=== PATIENT | male | born 1960 | race Caucasian/White ===

== ENCOUNTER 2023-12-03 10:49 | Outpatient (AMB) | payer OTHER, SELFPAY ==
--- NOTE | 2023-12-03 10:52 | MHC.PC.OV ---
Vital Signs 12/03/23 10:55 12/03/23 11:33 Height 5 ft 11 in Weight 208 lb 4 oz BMI 29.0 BP 142/78 H 118/64 Blood Pressure Location Lt brachial Rt brachial Position Sitting Sitting Respiration 15 Pulse 93 Pulse Source Pulse Oximeter Pulse Oximetry (%) 97 Oxygen Delivery Method Room Air Intake Visit Reasons: LIBRARY AIDE-EST CARE Intake Note: new patient to establish care Allergies No Known Allergies Allergy (Verified 12/03/23 11:14) Medication List - Last Reconciled 12/03/23 by JUDE Felipe No Known Home Meds Tobacco use date assessed: 12/03/23 Dental Screening Dental Screen Date: 12/03/23 Did you have a dental visit in the last 12 months?: Yes Did you have a dental problem in the last 6 months where you did not have access to dental care?: No Was dental information given to patient?: Patient has dentist HPI HPI Comments History of Present Illness Details 65 y/o M with YUHAAVIATAM, former smoker 60 pack year history/quit 15 years ago, cataracts, nocturia, skin cancer - basal cell ca, asymptomatic PVD Surgery: none Family hx: Mom w/ Alzheimers, Dad with AAA Health Maintenance: ? Colon has never had one done ? Tdap 11/2023 admin today Lung ca screening - AAA 2017 negative Specialists: GI Optho Derm Here today as a new patient to establish care and for complete physical exam. I do not have any old records. He recently relocated here from [place]. He has a cataract and needs an ophthalmology referral He wears hearing aids bilat, this is managed by [employer] Former smoker 60 pack year history quit 15 years ago would like to enroll in the lung cancer screening program Has never had a colonoscopy History of basal cell carcinoma Tdap required Plan Check screening labs Refer to derm, optho, GI for colon and lung ca screening Tdap today RTO 1 year for CPE,sooner PRN Labs from today show normal electrolytes, normal renal function, hemoglobin A1c 5.6%, normal LFTs, total cholesterol 175, LDL 115, HDL 45, triglycerides 79, normal vitamin-D, normal TSH, normal urine microalbumin creatinine ratio, B12 folate and PSA pending [facility] Medical History (Updated 12/03/23 @ 15:33 by JUDE Felipe) No pertinent past medical history No pertinent family history Surgical History (Updated 12/03/23 @ 11:01 by Dayami Frazier MA) No pertinent past surgical history Social History (Updated 12/03/23 @ 10:59 by Dayami Frazier MA) Household Members: Spouse Housing: House Are you a primary care management associate to a significant other at home: No Do you presently have visiting nurse or other home services: No Alcohol intake: current Alcohol intake frequency: does not drink Patient Tobacco Use Status: Former Tobacco user Tobacco use type: Cigarette Years Smoked: 30 e-Cigarette/Vaping Use: Never Used Second Hand Smoke Exposure: No service: No Current occupational status: retired Cognitive needs: Yes Hearing needs: Yes Vision needs: Yes (cataract) Questionnaire PHQ-9 Over the last 2 weeks, how often have you been bothered by any of the following problems? 1. Little interest or pleasure in doing things: not at all 2. Feeling down, depressed, or hopeless: not at all 3. Trouble falling or staying asleep, or sleeping too much: more than half the days 4. Feeling tired or having little energy: several days 5. Poor appetite or overeating: not at all 6. Feeling bad about yourself - or that you are a failure or have let yourself or your family down: not at all 7. Trouble concentrating on things, such as reading the newspaper or watching television: nearly every day 8. Moving or speaking so slowly that other people could have noticed. Or the opposite - being so fidgety or restless that you have been moving around a lot more than usual: not at all 9. Thoughts that you would be better off or of hurting yourself in some way: not at all Total score: 6 Depression Screening Interpretation: Negative Depression Screening Done: Yes 84670 - PHQ-9 Billing: Yes Source: Developed by Drs. Stuart Marlow, Fanta Beverly, Wero Wu and colleagues, with an educational bisi from [employer]. Thrive Questionnaire Date Thrive assessed: 12/03/23 I am a: Patient What is your living situation today?: I have a steady place to live Within the past 12 months, did the food you bought not last and you didn't have the money to get more?: Never true Within the past 12 months, did you worry whether your food would run out before you got money to buy more?: Never true Do you have trouble paying for medicines?: No Do you have trouble getting transportation to medical appointments?: No Do you have trouble paying your heating and electricity bill?: No Do you have trouble taking care of your child, family member or friend?: No Do you have trouble with day-to-day activities such as bathing, preparing meals, shopping, managing finances, etc.?: No Are you currently unemployed and looking for a job?: No Are you interested in more education?: No Please select the resources that you would like help with: None Currently or been in a relationship where the following occur: No concerns reported THRIVE Score: 0 AUDIT C Alcohol Use Questionnaire (AUDIT-C) 1. How often do you have a drink containing alcohol?: Monthly or less 2. How many drinks containing alcohol do you have on a typical day when you are drinking?: 1 or 2 3. How often do you have six or more drinks on one occasion?: Never Total Score: 1 Score Reviewed/Action Taken: Yes NANCI-7 AMB Questionnaire NANCI-7 Date NANCI - 7 assessed: 12/03/23 Feeling nervous, anxious, or on edge: 0 = Not at all Not being able to stop or control worryin = Not at all Worrying too much about different things: 0 = Not at all Trouble relaxin = Not at all Being so restless that it is hard to sit still: 0 = Not at all Becoming easily annoyed or irritable: 0 = Not at all Feeling afraid as if something awful might happen: 0 = Not at all Total NANCI-7 score (0-4 normal; 5-9 mild; 10-14 moderate; 15-21 severe): 0 Source: Developed by Drs. Stuart Marlow, Fanta Beverly, Wero Wu and colleagues, with an educational bisi from [employer]. NANCI-7 Assessment Billing NANCI-7 Assessment Tool: NANCI-7 Assessment 28534 Review of Systems Const Details: Constitutional: Denies fever. Skin: Denies rash. Eye: Denies eye pain. ENMT: Denies sore throat and nasal congestion. Respiratory: Denies shortness of breath and cough. Gastrointestinal: Denies nausea, vomiting or abdominal pain. Cardiovascular: Denies chest pain and syncope. Genitourinary: Denies dysuria. Musculoskeletal: Denies back pain and extremity pain. Neurologic: Denies headaches, confusion, and weakness. Psychiatric: Denies suicidal thoughts and substance abuse. Allergy/ Immunologic: Denies impaired immunity. Physical exam (Primary Care) Vital Signs: Last Vital Signs Pulse 93 12/03/23 10:55 Resp 15 12/03/23 10:55 BP 118/64 12/03/23 11:33 Pulse Ox 97 12/03/23 10:55 Oxygen Delivery Method Room Air 12/03/23 10:55 BMI result Body Mass Index 29.0 Tobacco/Smoking Status: Tobacco use Status Tobacco use date assessed 12/03/23 12/03/23 11:00 Patient Tobacco Use Status Former Tobacco user 12/03/23 11:00 Tobacco use type Cigarette 12/03/23 11:00 e-Cigarette/Vaping Use Never Used 12/03/23 11:00 PHQ-9: PHQ-9 Score PHQ-9: Total score 6 12/03/23 11:29 Depression Screening Interpretation: Negative Thrive Assessment: Date of Thrive Assessment Date Thrive assessed 12/03/23 12/03/23 10:54 Currently or been in a relationship where the following occur: No concerns reported Const Other: General: Well developed, well nourished, in no acute distress. Appears stated age. Head: Normocephalic, atraumatic. Eyes: Pupils are equal, round and reactive to light and accommodation. Conjunctivae are clear. Vision grossly normal. Ears: TMs clear AU, EACS WNL Nose: Patent, without discharge. Mouth: There are no ulcers or lesions noted. No inflammation, no post nasal drip, no plaques nor exudates. Neck: Supple, no adenopathy or thyromegaly. Lungs: Clear to auscultation bilaterally. No rales, rhonchi or wheeze noted. Good air flow in all krause. Heart: Regular rate and rhythm. No murmurs, click, rubs or gallops are noted. Abdomen: Bowel sounds present in all quadrants. The abdomen is soft, nontender, with no masses or organomegaly noted. No hernias are noted. Musculoskeletal: Joints are nontender, without swelling, redness, or effusions. Range of motion is observed to be normal. Pulses: Peripheral pulses are equal and palpable bilaterall mildly decreased, varicose veins bilat. Extremities: No clubbing, cyanosis nor edema is noted. Neurologic: Gait and station normal. Cranial Nerves 2-12 intact. Motor strength grossly symmetrical and intact. No sensory loss. Balance normal. Skin: No rashes, ulcers, or lesions noted. Turgor is good. Skin color is good. Hair and nails are without abnormalities. Psych: Normal eye contact, affect and mood appropriate, and normal interactions. Patient is alert and appropriate to context. Immunizations Boostrix Tdap 2.5 Lf unit-8 mcg-5 Lf/0.5 mL intramuscular syringe Performing Provider: JUDE Felipe Performing Location: [facility] Administered by: Elizabeth Spencer RN on 12/03/23 11:07 Dose Route Admin Location Dispensed Lot Number Expiration Date [employer] 0.5 mL IM Right Deltoid 0.5 mL [id number] 11/05/24 [id number] [employer] VIS Given Date VIS Provided VIS Publication Date 12/03/23 Single Vaccine 20 Eligibility Eligibility Date Funding Source Not [facility] Eligible 12/03/23 Private Coding Level of Care Code New Pt Prev Care 40-64y(55267) Diagnoses Encounter for general adult medical examination without abnormal findings Z00.00 Screen for colon cancer Z12.11 Laboratory exam ordered as part of routine general medical examination Z00.00 Former cigarette smoker Z87.891 Age-related nuclear cataract of left eye H25.12 Cataract type: age-related Age-related cataract type: nuclear Laterality: left History of skin cancer Z85.828 Asymptomatic PVD (peripheral vascular disease) I73.9 Nocturia R35.1 YUHAAVIATAM (hard of hearing) H91.90 Family history of Alzheimer disease Z82.0 Borderline high cholesterol E78.9 Additional Codes NANCI-7 Assessment Billing - NANCI-7 Assessment Tool: NANCI-7 Assessment 38482 ([id number]) Assessment & Plan Assessment & Plan (1) Encounter for general adult medical examination without abnormal findings: Code(s): Z00.00 - Encounter for general adult medical examination without abnormal findings Plan: . (2) Screen for colon cancer: Code(s): Z12.11 - Encounter for screening for malignant neoplasm of colon Category: Medical Plan: . (3) Laboratory exam ordered as part of routine general medical examination: Code(s): Z00.00 - Encounter for general adult medical examination without abnormal findings Category: Medical (4) Former cigarette smoker: Comment: 60 pack year hx/quit 15 years ago Code(s): Z87.891 - Personal history of nicotine dependence Category: Social Hx Plan: . (5) Cataract: Code(s): H26.9 - Unspecified cataract Category: Medical Qualifiers: Cataract type: age-related Age-related cataract type: nuclear Laterality: left Qualified Code(s): H25.12 - Age-related nuclear cataract, left eye Plan: . (6) History of skin cancer: Code(s): Z85.828 - Personal history of other malignant neoplasm of skin Category: Medical Plan: . (7) Asymptomatic PVD (peripheral vascular disease): Comment: based on clinical exam, monitor skin integrity Code(s): I73.9 - Peripheral vascular disease, unspecified Category: Medical Plan: . (8) Nocturia: Code(s): R35.1 - Nocturia Category: Medical Plan: . (9) YUHAAVIATAM (hard of hearing): Code(s): H91.90 - Unspecified hearing loss, unspecified ear Category: Medical Plan: . (10) Family history of Alzheimer disease: Code(s): Z82.0 - Family history of epilepsy and other diseases of the nervous system Category: Medical Plan: . (11) Borderline high cholesterol: Code(s): E78.9 - Disorder of lipoprotein metabolism, unspecified Category: Medical Plan: To reduce low-density lipoprotein (LDL) cholesterol, you can try making lifestyle changes to your diet, exercise, and other habits: Eat a heart-healthy diet Limit saturated and trans fats, and eat more foods with healthy fats, like nuts, seeds, and unsaturated oils. You can also try eating more soluble fiber, which can help reduce the amount of cholesterol your body absorbs. Foods high in soluble fiber include whole grains, fruits, and legumes. Exercise regularly Aim for at least 150 minutes of exercise per week, such as walking, swimming, or cycling. Maintain a healthy weight Losing weight can help lower LDL cholesterol, especially if you are overweight or obese. Manage stress Chronic stress can raise LDL cholesterol, so try to find healthy ways to manage it. Quit smoking Smoking can raise cholesterol and increase the risk of serious health problems. Get enough sleep Aim for 7 to 9 hours of sleep per night. You should also limit foods with cholesterol, which are found in animal products like liver, egg yolks, and whole milk dairy products. Plan . Orders: Orders TDaP Immunization Today Z23 - Encounter for immunization Hemoglobin A1c Today Z00.00 - Encounter for general adult medical examination without abnormal findings Vitamin B12 and Folate Today Z00.00 - Encounter for general adult medical examination without abnormal findings Vitamin D 25-OH Total Today Z00.00 - Encounter for general adult medical examination without abnormal findings Comprehensive Met. Panel Today Z00.00 - Encounter for general adult medical examination without abnormal findings Lipid Panel Today Z00.00 - Encounter for general adult medical examination without abnormal findings Microalbumin, Random (w Creat) Today Z00.00 - Encounter for general adult medical examination without abnormal findings PSA, Ultra Sensitive Today Z00.00 - Encounter for general adult medical examination without abnormal findings TSH reflex Free T4 Today Z00.00 - Encounter for general adult medical examination without abnormal findings Referrals Lung Cancer Screening Referral Z87.891 - Personal history of nicotine dependence Ophthalmology Referral H26.9 - Unspecified cataract Gastroenterology Referral Z12.11 - Encounter for screening for malignant neoplasm of colon Dermatology Referral Z85.828 - Personal history of other malignant neoplasm of skin Patient Instructions: Walk-In Care (Urgent Care): We Make it Easy Walk-in for urgent medical issues such as: ? Seasonal Allergies ? Insect Bites ? Cough ? Diarrhea ? Acute Asthma Attacks ? Back, Knee or Joint Pain ? Ear Infection ? Fever without a Rash ? Headaches ? Nausea ? [place] Eye, Rash or Skin Irritation ? Sore Throat ? Sports Physicals ? Vomiting Most insurances are accepted. Patients do not need to be part of the [facility] to seek care at the walk-in clinic. Locations [facility] [address], [place] [address] ? [phone] [facility] in [place] provides services to ages 18 and over. Open Wednesday-Wednesday: 8 a.m. to 5 p.m. and Wednesday: 9 a.m. to 3 p.m.* *Hours may vary due to staffing availability. To confirm Walk-In Care hours in [place], please call [phone]. [address] [facility], [place] [address] ? [phone] [facility] in [place] provides services to ages 12 and over. Open Wednesday-Wednesday: 8 a.m. to 5 p.m. Hours may vary due to staffing availability. To confirm Walk-In Care hours in [place], please call [phone]. LABORATORY SERVICES: [facility] Lab ? Primary Location [address] [place] [address] Wednesday through Wednesday 6:00 AM ? 5:00 PM Wednesday 7:00 AM ? 11:00 AM* [phone] The [facility] Lab is centrally located near the front entrance of the [facility] for easy outpatient access. Convenient parking is provided for outpatients. *Hours may vary due to staffing availability. To confirm Laboratory hours for any location, please call [phone]. Offsite Location For your convenience, we offer offsite laboratory draw stations at the following locations: [address] [place] [address] ? [address], [address] Wednesday through Wednesday 7:30 AM ? 1:00 PM* [phone] *Hours may vary due to staffing availability. To confirm Laboratory hours for any location, please call [phone]. [place] ? [address] Wednesday through Wednesday 6:00 AM ? 3:30 PM* Wednesday 6:30 AM ? 3 PM* [phone] *Hours may vary due to staffing availability. To confirm Laboratory hours for any location, please call [phone] [place] [address] Wednesday through Wednesday 7:30 AM ? 4:00 PM* [phone] *Hours may vary due to staffing availability. To confirm Laboratory hours for any location, please call [phone] [place] [address] Wednesday through 9:00 AM ? 4:00 PM* *Hours may vary due to staffing availability. To confirm Laboratory hours for any location, please call [phone]. Appointments are not necessary. Walk-ins are welcome. Like all the departments throughout the [facility], our Lab undergoes frequent reviews to ensure the quality and accuracy of test results, and our staff takes special pride in its status as a nationally accredited facility. Patient Portal: ONE PATIENT. ONE RECORD. BETTER CARE. [facility] has a fully integrated, cutting-edge mobile electronic health information system that has revolutionized the way we care for our patients and manage our organization. This system improves communication and coordination enabling us to provide safe, higher-quality care, and an overall positive experience for staff and patients. Our first priority, as always, is to deliver the highest quality care possible. The system is running in the background supporting that priority. This portal is for all [facility] services and practices. If you are experiencing any technical difficulties with enrolling or logging into the Patient Portal please complete the [facility] Patient Portal Technical Support Form. [facility] now offers a new secure on-line interactive tool for patients to review their health information ? Patient Portal. This interactive web portal will enable patients and their families to take an active role in their care by providing easy, secure access to their health information via the internet. The Patient Portal provides patients with instant access to their health information, including laboratory results, medications, allergies, demographic information, visit history, and more. In addition to managing their own care, parents and health care proxies with authorized consent will appreciate the ability to access the records of those individuals for whom they provide care. Please note: if you wish to gain access (Proxy) to another patient?s portal, you will be required to come to the Medical Records Department in person at [facility]. Both the patient giving proxy access and the proxy will need to provide photo identification and complete the appropriate authorization. The Patient Portal also allows track their appointments online. The [facility] Patient Portal also saves patients time by allowing them to submit updates to their demographic and contact information prior to their visits. Portal email notifications will also alert patients to any new activity on their portal, such as test results and new appointments. In order to initially enroll in the [facility] Patient Portal, you will need to enter some required information including the following: ? your [facility] Medical Record number ? your personal home email address ? name ? date of Please note: In order to enroll in the [facility] Patient Portal, we need to have your email address on file in your electronic medical record. The email address needs to be specific for one person (yourself) in order for your Portal enrollment to be successful. You can update your email address in person with our Registration staff when you are registering for a hospital visit. Otherwise, you will need to come to the Health Information Management (Medical Records) Department at [facility]. We are open from Wednesday ? Wednesday from 7:30 a.m. ? 4:30 p.m. You will be required to present a photo id. Once you have successfully enrolled in the Patient Portal, you will receive a one-time user id and password for the Portal, sent to your email address. This will allow you to log into the Patient Portal within 99 hrs and reset your own logon id and password, and define personal security questions. Once your permanent login and password have been set, you can log into the [facility] Patient Portal at any time via the blue button above or from the Portal Logon button on any page of the [facility] website. [facility] and [facility] encourage all of our patients to enroll in Patient Portal as it presents a valuable opportunity for patients and their families to actively participate in their care and stay healthy Welcome to [facility]. We look forward to working with you. Health screenings for men ages 40 to 64 You should visit your health care provider regularly, even if you feel healthy. The purpose of these visits is to: Screen for medical issues Assess your risk for future medical problems Encourage a healthy lifestyle Update vaccinations and other preventive care services Help you get to know your provider in case of an illness Information Even if you feel fine, you should still see your provider for regular checkups. These visits can help you avoid problems in the future. For example, the only way to find out if you have high blood pressure is to have it checked regularly. High blood sugar and high cholesterol level also may not have any symptoms in the early stages. Simple blood tests can check for these conditions. There are specific times when you should see your provider or receive specific health screenings. The [place] Preventive Services Task Force publishes a list of recommended screenings. Below are screening guidelines for men ages 40 to 64. BLOOD PRESSURE SCREENING Have your blood pressure checked at least once every year. Watch for blood pressure screenings in your area. Ask your provider if you can stop in to have your blood pressure checked. Ask your provider if you need your blood pressure checked more often if: You have diabetes, heart disease, kidney problems, or are overweight or have certain other health conditions You have a first-degree relative with high blood pressure You are Black Your blood pressure top number is from 120 to 129 mm Hg, or the bottom number is from 70 to 79 mm Hg If the top number is 130 mm Hg or greater or the bottom number is 80 mm Hg or greater, this is considered stage 1 hypertension. Schedule an appointment with your provider to learn how you can lower your blood pressure. Effects of age on blood pressure CHOLESTEROL SCREENING Cholesterol screening should begin at age 35 for men with no known risk factors for coronary heart disease. Repeat cholesterol screening should take place: Every 5 years for men with normal cholesterol levels More often if changes occur in lifestyle (including weight gain and diet) More often if you have diabetes, heart disease, kidney problems, or certain other conditions COLORECTAL CANCER SCREENING If you are under age 45, talk to your provider about getting screened. You may need to be screened if you have a strong family history of colon cancer or polyps. Screening may also be considered if you have risk factors such as a history of inflammatory bowel disease or polyps. If you are age 45 to 75, you should be screened for colorectal cancer. There are several screening tests available: A stool-based fecal occult blood (gFOBT) or fecal immunochemical test (FIT) every year A stool sDNA test every 1 to 3 years Flexible sigmoidoscopy every 5 years or every 10 years with stool testing FIT done every year CT colonography (virtual colonoscopy) every 5 years Colonoscopy every 10 years You may need a colonoscopy more often if you have risk factors for colorectal cancer, such as: Ulcerative colitis A personal or family history of colorectal cancer A history of growths in your colon called adenomatous polyps DENTAL EXAM Go to the dentist once or twice every year for an exam and cleaning. Your dentist will evaluate if you have a need for more frequent visits. DIABETES SCREENING All adults who do not have risk factors for diabetes should be screened starting at age 35 and repeated every 3 years. If you have other risk factors for diabetes, such as a first degree relative with diabetes, overweight or obesity, high blood pressure, prediabetes, or a history of heart disease, you may be tested more often. If you are overweight and have other risk factors, such as high blood pressure and are planning to become , screening is recommended. EYE EXAM Have an eye exam every 2 to 4 years ages 40 to 54 and every 1 to 3 years ages 55 to 64. Your provider may recommend more frequent eye exams if you have vision problems or glaucoma risk. Have an eye exam that includes an examination of your retina (back of your eye) at least every year if you have diabetes. IMMUNIZATIONS Commonly needed vaccines include: Flu shot: get one every year COVID-19 vaccine: ask your provider what is best for you Tetanus-diphtheria and acellular pertussis (Tdap) vaccine: have as one of your tetanus-diphtheria vaccines if you did not receive it as an adolescent Tetanus-diphtheria: have a booster (or Tdap) every 10 years Varicella vaccine: receive 2 doses if you never had chickenpox or the varicella vaccine and were born in 1979 or after Hepatitis B vaccine: receive 2, 3, or 4 doses, depending on your exact circumstances, if you did not receive these as a child or adolescent, until age 59 Shingles (herpes zoster) vaccine: at or after age 50 Ask your provider if you should receive other immunizations, especially if you have certain medical conditions, such as diabetes or are at increased risk for some diseases such as pneumonia. INFECTIOUS DISEASE SCREENING Screening for hepatitis C: all adults ages 18 to 79 should get a one-time test for hepatitis C. Screening for human immunodeficiency virus (HIV): all people ages 15 to 65 should get a one-time test for HIV. Depending on your lifestyle and medical history, you may need to be screened for infections such as syphilis, chlamydia, and other infections. LUNG CANCER SCREENING You should have an annual screening for lung cancer with low-dose computed tomography (LDCT) if: You are age 50 to 80 years AND You have a 20 pack-year smoking history AND You currently smoke or have quit within the past 15 years OSTEOPOROSIS SCREENING If you are age 50 to 64 and have risk factors for osteoporosis, you should discuss screening with your provider. Risk factors can include long-term steroid use, low body weight, smoking, heavy alcohol use, having a fracture after age 50, or a family history of hip fracture or osteoporosis. Osteoporosis PHYSICAL EXAM All adults should visit their provider from time to time, even if they are healthy. The purpose of these visits is to: Screen for diseases Assess risk of future medical problems Encourage a healthy lifestyle Update vaccinations and other preventive care services Maintain a relationship with a provider in case of an illness Your height, weight, and body mass index (BMI) should be checked at every exam. During your exam, your provider may ask you about: Depression and anxiety Diet and exercise Alcohol and tobacco use Safety, such as use of seat belts and smoke detectors Your medicines and risk for interactions PROSTATE CANCER SCREENING If you're 55 through 69 years old, before having the test, talk to your provider about the pros and cons of having a PSA test. Ask about: Whether screening decreases your chance of dying from prostate cancer. Whether there is any harm from prostate cancer screening, such as side effects from testing or overtreatment of cancer when discovered. Whether you have a higher risk of prostate cancer than others. If you are age 55 or younger, screening is not generally recommended. You should talk with your provider about if you have a higher risk for prostate cancer. Risk factors include: Having a family history of prostate cancer (especially a brother or father) Being If you choose to be tested, the PSA blood test is repeated over time (yearly or less often), though the best frequency is not known. Prostate examinations are no longer routinely done on men with no symptoms. Prostate cancer SKIN EXAM Your provider may check your skin for signs of skin cancer, especially if you're at high risk. People at high risk include those who have had skin cancer before, have close relatives with skin cancer, or have a weakened immune system. TESTICULAR EXAM The [place] Preventive Services Task Force (USPSTF) now recommends against performing testicular self-exams. Doing testicular self-exams has been shown to have little to no benefit.
[2023-12-03 10:55] VITALS: BP 142/78; PULSE 93; RESP 15; O2SAT 97; BMI 29.0
[2023-12-03 11:33] VITALS: BP 118/64
== END 2023-12-03 11:43 | disposition home or self-care (01) ==
PROVIDERS: PCP Nurse Practitioner Family; Visit Provider Nurse Practitioner Family
DX: Z00.00 Encounter for general adult medical examination without abnormal findings (principal); R35.1 Nocturia; E78.9 Disorder of lipoprotein metabolism, unspecified; I73.9 Peripheral vascular disease, unspecified; H25.12 Age-related nuclear cataract, left eye; Z12.11 Encounter for screening for malignant neoplasm of colon; Z87.891 Personal history of nicotine dependence; Z85.828 Personal history of other malignant neoplasm of skin; Z82.0 Family history of epilepsy and other diseases of the nervous system

== ENCOUNTER → 2023-12-03 10:49 | Outpatient (BNVA) | payer OTHER, SELFPAY | PROVIDERS: PCP Nurse Practitioner Family; Visit Provider Nurse Practitioner Family | DX: Z00.01 Encounter for general adult medical examination with abnormal findings (principal); Z23 Encounter for immunization; H25.12 Age-related nuclear cataract, left eye; I73.9 Peripheral vascular disease, unspecified; R35.1 Nocturia; H91.90 Unspecified hearing loss, unspecified ear; E78.9 Disorder of lipoprotein metabolism, unspecified; Z87.891 Personal history of nicotine dependence; Z85.828 Personal history of other malignant neoplasm of skin; Z82.0 Family history of epilepsy and other diseases of the nervous system | CPT/HCPCS: 90471; 90715; 96127; 99386 ==

== ENCOUNTER 2023-12-03 11:47 | Outpatient (REF) | payer OTHER, SELFPAY ==
[2023-12-03 14:47] LABS: Alanine Aminotransferase 23 U/L (0-40); Alkaline Phosphatase 66 U/L (39-117); Anion Gap 9 (12-20); Aspartate Amino Transferase 28 U/L (5-37); Bilirubin Total 0.8 mg/dL (0.0-1.0); Blood Urea Nitrogen 11 mg/dL (9-16); Calcium 9.5 mg/dL (8.4-10.2); Carbon Dioxide 30 mmol/L (22-29); Chloride 104 mmol/L (96-108); Cholesterol 175 mg/dL (<200); Estimated Glomerular Filt Rate > 60; Glucose Random 99 mg/dL (60-115); HDL Cholesterol 45 mg/dL (>40); LDL Cholesterol Calculated 115 mg/dL (<100); Potassium 4.2 mmol/L (3.3-5.1); Sodium 139 mmol/L (135-145); Total Protein 7.1 g/dL (6.5-8.0); Triglycerides 79 mg/dL (<150)
[2023-12-03 14:59] LABS: Creatinine Urine 21.12 mg/dL; Microalbumin Urine < 5.0 mg/L
[2023-12-03 14:59] LABS: Estimated Average Glucose 114 mg/dL; Hemoglobin A1C 131.8424 umol/L; Hemoglobin A1c % 5.6 % (<6.0); Total Hemoglobin (HGBA1C) 3514.8675 umol/L
[2023-12-03 15:05] LABS: TSH reflex Free T4 1.17 uIU/mL (0.32-4.0); Vitamin D 25-OH Total 79.6 ng/mL (>30)
[2023-12-03 15:38] LABS: Folate 14.5 ng/mL (> or = 4.0); Vitamin B12 1071 pg/mL (200-900)
[2023-12-10 01:03] LABS: PSA, Ultra Sensitive 1.42 ng/mL
== END 2023-12-03 11:48 | disposition home or self-care (01) ==
LOC: HO.WFDLDS 11:47
PROVIDERS: Visit Provider Nurse Practitioner Family
DX: Z00.00 Encounter for general adult medical examination without abnormal findings (principal)
CPT/HCPCS: 36415; 80053; 80061; 82306; 82570; 82607; 82746; 83036; 84153; 84443

== ENCOUNTER 2024-02-18 12:20 | Outpatient (AMB) | payer OTHER, SELFPAY ==
--- NOTE | 2024-02-18 12:22 | A.OFFPC_ITS ---
Vital Signs 02/18/24 12:26 Height 5 ft 11 in Weight 209 lb BMI 29.1 BP 132/70 Blood Pressure Location Rt brachial Position Sitting Respiration 13 Pulse 94 Pulse Source Pulse Oximeter Pulse Oximetry (%) 99 Oxygen Delivery Method Room Air Intake Visit Reasons: Per Op Right Eye Intake Note: Pre op for right eye [employer] Required: No Allergies No Known Allergies Allergy (Verified 02/18/24 12:23) Tobacco use date assessed: 12/03/23 Dental Screening Dental Screen Date: 12/03/23 HPI HPI Comments History of Present Illness Details 63 y/o M with KALISPEL, former smoker 60 pack year history/quit 15 years ago, cataracts, nocturia, skin cancer - basal cell ca, asymptomatic PVD, retinal microanuerysm R, branch retinal vein occlusion Surgery: deviated septum repair Family hx: Mom w/ Alzheimers, Dad with AAA Health Maintenance: Colon has never had one done Tdap 11/2023 Lung ca screening - 12/2023 not eligibke for lung ca screening per lung program quit > 15 years ago AAA 2017 negative Specialists: GI Optho cataract bilat, retinal microanuerysm R, branch retinal vein occlusion [facility] 12/2023 Derm Here today for preoperative clearance. Surgery Type: Cataract removal right eye Anesthesia Type: Local Surgeon: [facility] Date: 02/22/2024 Any past surgical procedures: none Any complications from anesthesia or in post-op period: denies ASA or NSAID Use: only occasional for headaches Current smoker: former Alcohol use: occasional Drug use: denies METs: > 4 climb flight of stairs, golf, walk, yardwork Medical history: Asthma No COPD No Obesity BMI 29.1 Diabetes No Testing Labs from12/03/23 show normal electrolytes, normal renal function, hemoglobin A1c 5.6%, normal LFTs, total cholesterol 175, LDL 115, HDL 45, triglycerides 79, normal vitamin-D, normal TSH, normal urine microalbumin creatinine ratio, B12 fo late and PSA normal EKG done today WNL Exam: General: Well developed, well nourished, in no acute distress. Appears stated age. Head: Normocephalic, atraumatic. Eyes: Pupils are equal, round and reactive to light and accommodation. Conjunctivae are clear. Vision grossly normal. Lungs: Clear to auscultation bilaterally. No rales, rhonchi or wheeze noted. Good air flow in all krause. Heart: Regular rate and rhythm. No murmurs, click, rubs or gallops are noted. Neurologic: Gait and station normal. Cranial Nerves 2-12 intact. Motor strength grossly symmetrical and intact. No sensory loss. Balance normal. Skin: No rashes, ulcers, or lesions noted. Turgor is good. Skin color is good. Hair and nails are without abnormalities. Psych: Normal eye contact, affect and mood appropriate, and normal interactions. Patient is alert and appropriate to context. Patient is medically cleared to proceed with the above surgery. Return to office to follow up as scheduled, sooner as needed. This note is constructed using voice recognition software. While every effort has been made to ensure accuracy in die reamer, still errors may have been included Sometimes, these errors may affect the content or meaning of the given sentence . Total time spent caring for the patient today was 40 minutes. This includes time spent before the visit reviewing the chart, time spent during the visit, and time spent after the visit on documentation [facility] Medical History (Updated 02/18/24 @ 18:07 by Deann Chiang, [facility]) No pertinent past medical history No pertinent family history Surgical History (Updated 12/03/23 @ 11:01 by Dayami Frazier MA) No pertinent past surgical history Social History (Updated 12/03/23 @ 10:59 by Dayami Frazier MA) Household Members: Spouse Both parents involved: No Caregiver staying overnight: No Housing: House Are you a primary home health care case manager to a significant other at home: No Do you presently have visiting nurse or other home services: No 75 years or older and lives alone: No Alcohol intake: current Alcohol intake frequency: does not drink Patient Tobacco Use Status: Former Tobacco user Tobacco use type: Cigarette Years Smoked: 30 e-Cigarette/Vaping Use: Never Used Second Hand Smoke Exposure: No service: No Current occupational status: retired Cognitive needs: Yes Hearing needs: Yes Vision needs: Yes (cataract) Questionnaire PHQ-9 Over the last 2 weeks, how often have you been bothered by any of the following problems? 1. Little interest or pleasure in doing things: not at all 2. Feeling down, depressed, or hopeless: not at all 3. Trouble falling or staying asleep, or sleeping too much: not at all 4. Feeling tired or having little energy: not at all 5. Poor appetite or overeating: not at all 6. Feeling bad about yourself - or that you are a failure or have let yourself or your family down: not at all 7. Trouble concentrating on things, such as reading the newspaper or watching television: not at all 8. Moving or speaking so slowly that other people could have noticed. Or the opposite - being so fidgety or restless that you have been moving around a lot more than usual: not at all 9. Thoughts that you would be better off or of hurting yourself in some way: not at all Total score: 0 Depression Screening Interpretation: Negative Depression Screening Done: Yes 10720 - PHQ-9 Billing: Yes Source: Developed by Drs. Stuart Marlow, Fanta Beverly, Wero Wu and colleagues, with an educational bisi from [employer]. Thrive Questionnaire Date Thrive assessed: 02/18/24 I am a: Patient What is your living situation today?: I have a steady place to live Within the past 12 months, did the food you bought not last and you didn't have the money to get more?: Never true Within the past 12 months, did you worry whether your food would run out before you got money to buy more?: Never true Do you have trouble paying for medicines?: No Do you have trouble getting transportation to medical appointments?: No Do you have trouble paying your heating and electricity bill?: No Do you have trouble taking care of your child, family member or friend?: No Do you have trouble with day-to-day activities such as bathing, preparing meals, shopping, managing finances, etc.?: No Are you currently unemployed and looking for a job?: No Are you interested in more education?: No Please select the resources that you would like help with: None Currently or been in a relationship where the following occur: No concerns reported THRIVE Score: 0 AUDIT C Alcohol Use Questionnaire (AUDIT-C) 1. How often do you have a drink containing alcohol?: Monthly or less 2. How many drinks containing alcohol do you have on a typical day when you are drinking?: 1 or 2 3. How often do you have six or more drinks on one occasion?: Never Total Score: 1 Score Reviewed/Action Taken: Yes NANCI-7 AMB Questionnaire NANCI-7 Date NANCI - 7 assessed: 02/18/24 Feeling nervous, anxious, or on edge: 0 = Not at all Not being able to stop or control worryin = Not at all Worrying too much about different things: 0 = Not at all Trouble relaxin = Not at all Being so restless that it is hard to sit still: 0 = Not at all Becoming easily annoyed or irritable: 0 = Not at all Feeling afraid as if something awful might happen: 0 = Not at all Total NANCI-7 score (0-4 normal; 5-9 mild; 10-14 moderate; 15-21 severe): 0 Source: Developed by Drs. Stuart Marlow, Fanta Beverly, Wero Wu and colleagues, with an educational bisi from [employer]. NANCI-7 Assessment Billing NANCI-7 Assessment Tool: NANCI-7 Assessment 85229 Physical exam (Primary Care) Vital Signs: Last Vital Signs Pulse 94 02/18/24 12:26 Resp 13 02/18/24 12:26 BP 132/70 02/18/24 12:26 Pulse Ox 99 02/18/24 12:26 Oxygen Delivery Method Room Air 02/18/24 12:26 BMI result Body Mass Index 29.1 Tobacco/Smoking Status: Tobacco use Status Tobacco use date assessed 12/03/23 02/18/24 12:25 Patient Tobacco Use Status Former Tobacco user 02/18/24 12:25 Tobacco use type Cigarette 02/18/24 12:25 e-Cigarette/Vaping Use Never Used 02/18/24 12:25 PHQ-9: PHQ-9 Score PHQ-9: Total score 0 02/18/24 13:03 Depression Screening Interpretation: Negative Thrive Assessment: Date of Thrive Assessment Date Thrive assessed 02/18/24 02/18/24 12:25 Currently or been in a relationship where the following occur: No concerns reported Office Procedures EKG 39054-[id number], Complete Coding Level of Care Code Est Pt Level 5 (36643) Complex EM visit Add On G2211 Diagnoses Pre-op exam Z01.818 Age-related nuclear cataract of left eye H25.12 Age-related cataract type: nuclear Cataract type: age-related Laterality: left Borderline high cholesterol E78.9 Branch retinal vein occlusion, unspecified complication status, unspecified laterality H34.8392 Retinal vein occlusion complication status: unspecified complication status Laterality: unspecified laterality 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 Asymptomatic PVD (peripheral vascular disease) I73.9 CPT Codes EKG - CPT: 90610-[id number], Complete ([id number]) Additional Codes NANCI-7 Assessment Billing - NANCI-7 Assessment Tool: NANCI-7 Assessment 99362 ([id number]) PHQ-9 - 81730 - PHQ-9 Billing: Yes ([id number]) Assessment & Plan Assessment & Plan (1) Pre-op exam: Code(s): Z01.818 - Encounter for other preprocedural examination (2) Cataract: Code(s): H26.9 - Unspecified cataract Category: Medical Qualifiers: Age-related cataract type: nuclear Cataract type: age-related Laterality: left Qualified Code(s): H25.12 - Age-related nuclear cataract, left eye (3) Borderline high cholesterol: Code(s): E78.9 - Disorder of lipoprotein metabolism, unspecified Category: Medical (4) Retinal vein occlusion, branch: Code(s): H34.8392 - Tributary (branch) retinal vein occlusion, unspecified eye, stable Category: Medical Qualifiers: Retinal vein occlusion complication status: unspecified complication status Laterality: unspecified laterality Qualified Code(s): H34.8392 - Tributary (branch) retinal vein occlusion, unspecified eye, stable (5) Retinal micro-aneurysm of right eye: Code(s): H35.041 - Retinal micro-aneurysms, unspecified, right eye Category: Medical (6) Asymptomatic PVD (peripheral vascular disease): Comment: based on clinical exam, monitor skin integrity Code(s): I73.9 - Peripheral vascular disease, unspecified Category: Medical Plan . Orders: Orders AMB EKG-In Office Today Z13.6 - Encounter for screening for cardiovascular disorders
[2024-02-18 12:26] VITALS: BP 132/70; PULSE 94; RESP 13; O2SAT 99; BMI 29.1
== END 2024-02-18 16:43 | disposition home or self-care (01) ==
PROVIDERS: PCP Nurse Practitioner Family; Visit Provider Nurse Practitioner Family
DX: H25.12 Age-related nuclear cataract, left eye (principal); H35.041 Retinal micro-aneurysms, unspecified, right eye; E78.9 Disorder of lipoprotein metabolism, unspecified; I73.9 Peripheral vascular disease, unspecified; Z01.818 Encounter for other preprocedural examination; H34.8392 Tributary (branch) retinal vein occlusion, unspecified eye, stable

== ENCOUNTER → 2024-02-18 12:20 | Outpatient (BNVA) | payer OTHER, SELFPAY | PROVIDERS: PCP Nurse Practitioner Family; Visit Provider Nurse Practitioner Family | DX: Z01.818 Encounter for other preprocedural examination (principal); H25.12 Age-related nuclear cataract, left eye; E78.9 Disorder of lipoprotein metabolism, unspecified; H34.8392 Tributary (branch) retinal vein occlusion, unspecified eye, stable; H35.041 Retinal micro-aneurysms, unspecified, right eye; I73.9 Peripheral vascular disease, unspecified | CPT/HCPCS: 93005; 96127; 99212 ==

== ENCOUNTER 2024-06-07 07:49 | Outpatient (AMB) | payer OTHER, SELFPAY ==
--- OUTSIDE RECORDS SUMMARY | 2024-06-07 07:52 | XMS_ITS | Clinical Summary ---
Author Organization [facility] [place] [address] [place] [address] Care Team Providers Care District Sales Representative Name Role Phone Unavailable Primary Care Provider Unavailabl e Social History Tobacco Use Types Packs/Day Years Used Date Smoking Tobacco: Never Assessed Comments Unknown Sex and Gender Information Value Date Recorded Sex Assigned at Not on file Legal Sex Female 5:13 PM PST Gender Identity Not on file Sexual Orientation Not on file Plan of Treatment Not on file
--- OUTSIDE RECORDS SUMMARY | 2024-06-07 07:52 | XMS_ITS | Encounter Summary ---
Author Organization [facility] Address [address] [place] [address] Care Team Providers Care Student Services Director Name Role Phone Unavailable Primary Care Provider Unavailabl e Prior Encounters Date Type Department Care Team Description 02/27/2019 Converted 13x Documents [facility] [address] [place] [id number] <No scans attached> 02/27/2019 Converted 13x Documents [facility] [address] [place] [address] <No scans attached> Plan of Treatment Not on file Procedures Procedure Name Priority Date/Time Associated Diagnosis Comments CANCELLED APPOINTMENT Routine 03/02/2018 2:00 AM IP ATTORNEY CANCELLED APPOINTMENT Routine 03/02/2018 2:00 AM IP ATTORNEY PERIO MAINTENANCE Routine 11/26/2017 2:0 0 AM CDT ORAL HYGIENE INSTRUCTIONS Routine 2017 2:00 AM CDT 12 MO CEREC INLAY 2 SURF Routine 018 2:00 AM CDT TOPICAL APPLICATION OF FLUORIDE VARNISH Routine 08/25/2017 2:00 AM CDT COMPREHENSIVE ORAL EVALUATION - NEW OR ESTABLISHED PATIENT Routine 08/25/2017 2:00 AM CDT ORAL HYGIENE INSTRUCTIONS Routine 2017 2:00 AM CDT UR CADEN DECON/QD Routine 08/25/2017 2:00 AM CDT UR PERIODONTAL SCALING AND ROOT PLANING - ONE TO THREE TEETH PER QUADRANT Routine 08/25/2017 2:00 AM CDT UL PERIODONTAL SCALING AND ROOT PLANING - ONE TO THREE TEETH PER QUADRANT Routine 08/25/2017 2:00 AM CDT PROPHYLAXIS - ADULT Routine 08/25/2017 2 :00 AM CDT ADDITIONAL X-RAY Routine 08/25/2017 2:00 AM CDT 12 DO AMALGAM 2 SURFACE Routine 08/26/19 2:00 AM CDT 20 ENDODONTIC THERAPY, MOLAR TOOTH (EXCLUDING FINAL MANDAEN) Routine 08/25/2017 2:00 AM CDT 14 ENDODONTIC THERAPY, MOLAR TOOTH (EXCLUDING FINAL MANDAEN) Routine 08/25/2017 2:00 AM CDT 2 ENDODONTIC THERAPY, MOLAR TOOTH (EXCLUDING FINAL MANDAEN) Routine 08/25/2017 2:00 AM CDT 19 CEREC CROWN POST Routine 08/25/2017 2 :00 AM CDT 3 CEREC CROWN POST Routine 08/25/2017 2: 00 AM CDT 31 CROWN PFM POST Routine 08/25/2017 2:0 0 AM CDT 30 CROWN PFM POST Routine 08/25/2017 2:0 0 AM CDT 18 CROWN PFM POST Routine 08/25/2017 2:0 0 AM CDT 14 CROWN PFM POST Routine 08/25/2017 2:0 0 AM CDT 13 CROWN PFM POST Routine 08/25/2017 2:0 0 AM CDT 5 CROWN PFM POST Routine 08/25/2017 2:00 AM CDT 2 CROWN PFM POST Routine 08/25/2017 2:00 AM CDT 4 MOD COMPOSITE FILLING Routine 08/26/19 2:00 AM CDT 29 DO COMPOSITE FILLING Routine 08/26/19 2:00 AM CDT 15 CORE BUILDUP, INCLUDING ANY PINS WHEN REQUIRED Routine 07/29/2017 2:00 AM CDT 15 CEMENT CROWN Routine 07/29/2017 2:00 AM CDT 15 CEREC CROWN POST Routine 07/29/2017 2 :00 AM CDT 15 LIMITED ORAL EVALUATION - PROBLEM FOCUSED Routine 07/29/2017 2:00 AM CDT PANORAMIC RADIOGRAPHIC IMAGE Routine 07/29/2017 2:00 AM CDT BITEWINGS - FOUR RADIOGRAPHIC IMAGES Routine 07/29/2017 2:00 AM CDT ADDITIONAL X-RAY Routine 07/29/2017 2:00 AM CDT ADDITIONAL X-RAY Routine 07/29/2017 2:00 AM CDT SINGLE X-RAY Routine 07/29/2017 2:00 AM CDT SINGLE X-RAY Routine 07/29/2017 2:00 AM CDT SINGLE X-RAY Routine 07/29/2017 2:00 AM CDT Visit Diagnoses Not on file
[2024-06-07 07:59] VITALS: BP 132/64; PULSE 84; O2SAT 94; BMI 28.6
--- NOTE | 2024-06-07 07:59 | MHC.OFFVIS ---
Vital Signs 06/07/24 07:59 Height 5 ft 11 in Weight 205 lb BMI 28.6 BP 132/64 Blood Pressure Location Rt brachial Position Sitting Pulse 84 Pulse Source Pulse Oximeter Pulse Oximetry (%) 94 Oxygen Delivery Method Room Air Intake Visit Reasons: Colonoscopy Screening Intake Note: NEW PATIENT for initial colo screening. Chief Complaint; Document Reviewer Required: No Accompanied by: Spouse Allergies No Known Allergies Allergy (Verified 06/07/24 08:00) HPI HPI Colonoscopy Screening: Details: 63 year old? male is here today for pre colonoscopy screening.? Patient was sent to us by his PCP.? This is his first colonoscopy screening.? Patient denies any gastrointestinal symptoms in the past or at present.? However patient does report history of constipation. Patient reports he has been constipated all his life. Currently he is taking fiber supplement and is doing fairly well. Eating fruits and vegetables. Denies any personal or family history of gastrointestinal disease, colon polyps, or CRC.? Denies history of difficulty with sedation or anesthesia in the past.? Negative for history of sleep apnea.? Denies any history of cardiac, renal, pulmonary, or hepatic disease.?? No history of infectious? diseases like hepatitis A, B, C, HIV or tuberculosis.? Patient is not on any anticoagulation [facility] Medical History No pertinent past medical history No pertinent family history Surgical History History of cataract surgery Family History Mother Alzheimers disease Social History Household Members: Spouse Both parents involved: No Caregiver staying overnight: No Housing: House Are you a primary animal care giver to a significant other at home: No Do you presently have visiting nurse or other home services: No 75 years or older and lives alone: No Alcohol intake: current Alcohol intake frequency: does not drink Patient Tobacco Use Status: Former Tobacco user Tobacco use type: Cigarette Years Smoked: 30 e-Cigarette/Vaping Use: Never Used Second Hand Smoke Exposure: No service: No Current occupational status: retired Cognitive needs: Yes Hearing needs: Yes Vision needs: Yes (cataract) Review of Systems Const Denies weight gain and Denies weight loss ENT Reports no additional complaints, Denies dysphagia and Denies odynophagia Card Reports no additional complaints Resp Reports no additional complaints GI Denies abdominal pain, Denies belching, Denies melena, Denies bloating, Denies change in bowel habits, Denies dysphagia, Denies excessive flatus, Denies dyspepsia, Denies heartburn, Denies diarrhea, Denies loose stools, Denies nausea, Denies odynophagia and Denies vomiting Reports no additional complaints Musc Reports no additional complaints Neuro Reports no additional complaints Psych Reports no additional complaints Endo Reports no additional complaints Physical Exam Vital Signs: Last Vital Signs Pulse 84 06/07/24 07:59 BP 132/64 06/07/24 07:59 Pulse Ox 94 06/07/24 07:59 Oxygen Delivery Method Room Air 06/07/24 07:59 BMI result Body Mass Index 28.6 Const General: healthy appearing, no acute distress and well developed Nutritional Appearance: well nourished Orientation/consciousness: patient oriented x3 Resp Effort & Inspection: normal respiratory effort, able to speak in complete sentences, no tracheal deviation and symmetric chest movement Auscultation: clear to auscultation bilaterally Cardio Rate: regular rate GI Inspection: Yes normal to inspection and No distended Palpation (GI): Soft to palpation, not firm, nontender and No hepatosplenomegaly present Auscultation: normal bowel sounds General: Yes no CVA tenderness Back/Spine/Pelvis Back: no CVA tenderness Skin General skin exam: elasticity normal, turgor normal and dry skin Neuro General: patient oriented x3 Psych Appearance: grossly normal Mental Status: mental status grossly normal Assessment & Plan Assessment & Plan (1) Screen for colon cancer: Code(s): Z12.11 - Encounter for screening for malignant neoplasm of colon Category: Medical (2) Constipation: Code(s): K59.00 - Constipation, unspecified Qualifiers: Constipation type: slow transit constipation Qualified Code(s): K59.01 - Slow transit constipation Plan Patient denies any cardiac or respiratory symptoms.? Patient reports constipation may start taking Dulcolax on as needed basis. Patient was recommended to start to clocks 1 week before prep every evening. Denies any issues with anesthesia in the past.? Denies any history of sleep apnea.? No history infectious diseases in the past or present.? Not on any anticoagulation therapy.? No family or personal history of colon cancer or polyps.? Patient denies melena, hematochezia, unintentional weight loss or ribbon like stools.? Discussed at length the pre-procedure,? prep, diet & medications as well as what to expect prior, during and after the procedure.?? Stressed the importance of good bowel prep.? Recommended the use of Vaseline or Calmoseptine OTC & baby wipes with bowel movements to promote comfort.? ?Patient verbalizes understanding and agrees to plan of care.? He was given the opportunity to ask questions and all questions answered.? We will see him after the procedure.? Medications: New bisacodyl (Dulcolax (bisacodyl)) 10 mg (2 x 5 mg) PO BEDTIME 180 tabs 4RF polyethylene glycol 3350 (Miralax) As directed by gastroenterology department at [facility] 238 grams PO ONCE 238 grams 0RF Z12.11 - Encounter for screening for malignant neoplasm of colon Coding Level of Care Code New Pt Level 3 (45640) Diagnoses Screen for colon cancer Z12.11 Slow transit constipation K59.01 Constipation type: slow transit constipation Time Spent (min) 40 Comment 30 minutes spent with patient and additional 10 minutes spent reviewing his records
== END 2024-06-07 09:17 | disposition home or self-care (01) ==
LOC: HO.HGI 07:50
PROVIDERS: PCP Nurse Practitioner Family; Visit Provider Nurse Practitioner Family
DX: Z01.818 Encounter for other preprocedural examination (principal); Z12.11 Encounter for screening for malignant neoplasm of colon; K59.01 Slow transit constipation
CPT/HCPCS: 99202

== ENCOUNTER → 2024-06-07 07:49 | Outpatient (BNVA) | payer OTHER, SELFPAY | PROVIDERS: PCP Nurse Practitioner Family; Visit Provider Nurse Practitioner Family | DX: Z12.11 Encounter for screening for malignant neoplasm of colon (principal); K59.01 Slow transit constipation | CPT/HCPCS: 99202 ==

== ENCOUNTER 2024-12-19 09:38 | Day surgery (SDC) | payer OTHER, SELFPAY ==
--- OUTSIDE RECORDS SUMMARY | 2024-11-28 15:11 | XMS_ITS | Encounter Summary ---
Author Organization [facility] Health Address [address] [place] [address] Care Team Providers Care Insurance Sales Executive Name Role Phone Unavailable Primary Care Provider Unavailabl e Prior Encounters Date Type Department Care Team Description 02/27/2019 Converted 13x Documents [facility] [address] [place] [id number] <No scans attached> 02/27/2019 Converted 13x Documents [facility] [address] [place] [address] <No scans attached> Plan of Treatment Not on file Procedures Procedure Name Priority Date/Time Associated Diagnosis Comments CANCELLED APPOINTMENT Routine 03/02/2018 2:00 AM SOCIAL STAFF WORKER CANCELLED APPOINTMENT Routine 03/02/2018 2:00 AM SOCIAL STAFF WORKER PERIO MAINTENANCE Routine 11/26/2017 2:0 0 AM [...] 20 ENDODONTIC THERAPY, MOLAR TOOTH (EXCLUDING FINAL HINDUISM) Routine 08/25/2017 2:00 AM CDT 14 ENDODONTIC THERAPY, MOLAR TOOTH (EXCLUDING FINAL HINDUISM) Routine 08/25/2017 2:00 AM CDT 2 ENDODONTIC THERAPY, MOLAR TOOTH (EXCLUDING FINAL HINDUISM) Routine 08/25/2017 2:00 AM CDT 19 CEREC [...]
--- OUTSIDE RECORDS SUMMARY | 2024-11-28 15:12 | XMS_ITS | Clinical Summary ---
Author Organization [facility] Address [address] [place] [address] Care Team Providers Care Kitman Name Role Phone Unavailable Primary Care Provider [...]
--- NOTE | 2024-12-14 09:58 | HO.ANESPROP2 ---
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) Borderline high cholesterol (Acute) Family history of Alzheimer disease (Acute) [place] (hard of hearing) (Acute) Nocturia (Acute) Asymptomatic PVD (peripheral vascular disease) (Acute) History of skin cancer (Acute) Laboratory exam ordered as part of routine general medical examination (Acute) Cataract (Acute) Former cigarette smoker (Acute) Screen for colon cancer (Acute) Past Medical History Medical History TIA (transient ischemic attack) Skin cancer [place] (hard of hearing) Retinal vein occlusion, branch Asymptomatic PVD (peripheral vascular disease) Former cigarette smoker Family History Family History Mother Alzheimers disease Surgical History Surgical History History of nasal surgery History of cataract surgery Social History Social History Household Members: Spouse Housing: House Are you a primary continuum of care manager to a significant other at home: No Do you presently have visiting nurse or other home services: No Alcohol intake: current Alcohol intake frequency: holidays/special occasions only Patient Tobacco Use Status: Former Tobacco user Tobacco use type: Cigarette Years Smoked: 30 e-Cigarette/Vaping Use: Never Used Second Hand Smoke Exposure: No Use of substances other than those prescribed or required for medical reasons: No Are you DNR?: No Advance Directives: No Advance Directives Information Provided: Yes service: No Current occupational status: retired Cognitive needs: Yes Hearing needs: Yes Vision needs: Yes (cataract) Meds Allergies Allergy/AdvReac Type Severity Reaction Status Date / Time No Known Allergies Allergy Verified 06/07/24 08:00 Exam Airway Adult Head Mouth w/Numbe Teeth:  1. Missing Assessment and Plan Assessment Anesthesia Assessment: Chart Reviewed Documented by User: Atul Wang MD 12/19/24 11:08 [facility] Past Medical History Medical History TIA (transient ischemic attack) Skin cancer [place] (hard of hearing) Retinal vein occlusion, branch Asymptomatic PVD (peripheral vascular disease) Former cigarette smoker Family History Family History Mother Alzheimers disease Family history of problems with anesthesia: No Surgical History Surgical History History of nasal surgery History of cataract surgery History of Problems with Anesthesia: No Social History Social History Household Members: Spouse Housing: House Are you a primary continuum of care manager to a significant other at home: No Do you presently have visiting nurse or other home services: No Alcohol intake: current Alcohol intake frequency: holidays/special occasions only Patient Tobacco Use Status: Former Tobacco user Tobacco use type: Cigarette Years Smoked: 30 e-Cigarette/Vaping Use: Never Used Second Hand Smoke Exposure: No Use of substances other than those prescribed or required for medical reasons: No Are you DNR?: No Advance Directives: No Advance Directives Information Provided: Yes service: No Current occupational status: retired Cognitive needs: Yes Hearing needs: Yes Vision needs: Yes (cataract) Meds Allergies Allergy/AdvReac Type Severity Reaction Status Date / Time No Known Allergies Allergy Verified 06/07/24 08:00 Exam Exam Date and Time: 12/19/2024 Airway Mallampati Class: I TM Dist: >3cm Neck ROM: Full Adult Head Mouth w/Numbe Teeth:  1. Missing Loose/Missing/Broken Teeth: Yes Heart: rrr Lungs: ctab, vesicular Assessment and Plan Assessment Anesthesia Assessment: Anesthesia Plan Discussed Final Anesthetic Review Family History of Problems with Anesthesia: No History of Problems with Anesthesia: No NPO: Yes ASA Class: II Final Preanesthetic Review: No Changes in Pt Med Stat, Meds/Allgs Chart Reviewed, Consent Obtained/Reviewed and Anes Risks/Benef Reviewed Patient Risk: Low Procedure Risk: Low Anesthetic Plan Anesthetic Plan: MAC: Disposition: Standard PACU
[2024-12-15 14:38] VITALS: BMI 28.6
[2024-12-19 10:35] VITALS: BMI 28.9
[2024-12-19 10:36] VITALS: BP 137/72; PULSE 113; RESP 16; TEMP 36.3; O2SAT 97
[2024-12-19] MEDS: Lactated Ringers 1,000 ML 100 ML IVCONT (10:55)
--- NOTE | 2024-12-19 11:40 | MHC.SHP ---
Pre-Procedural Eval Section A - 24 Hr Update-Section A only Date of Service: 12/19/24 Section B - Complete if H&P > 30 days Chief Complaint: screening Relevant Family History (Specify if Yes): No Relevant Social History: None Present Medications: see Short Stay Collaborative assessment Medical History: Significant History (cataract) History of Previous Operations: No relevant previous surgery Allergies: Allergies Allergy/AdvReac Type Severity Reaction Status Date / Time No Known Allergies Allergy Verified 06/07/24 08:00 Review of Systems Sugical H&P ROS: Negative: Constitution, Cardiovascular, Respiratory, Neurological, Psychiatric, Hem-Onc, Allergic/Immunologic, Gastrointestinal, Genitourinary, Musculoskeletal, Integumentary, Endocrine and Eyes/Ears/Nose/Throat Exam Surgical H&P Exam: Normal: HEENT, Normal: Heart, Normal: Lungs, Normal: Extremities, Normal: Abdomen, Normal: Skin and Normal: Neurological Plan Diagnosis/Plan: Unchanged I have reviewed the history and physical and performed a pertinent physical examination on my patient. No changes have occurred unless specified. Time Spent With Patient Time: Total time managing care of this patient today ____ minutes.
--- NOTE | 2024-12-19 12:42 | P.OPN-COLO_ITS ---
Colonoscopy Operative Note Operative Note Date of Service: 12/19/24 Narrative: Operative Information Procedure Description: Colonoscopy Indication: screening Anesthesia: MAC COLONOSCOPY Instrument: Olympus variable stiffness pediatric scope 190L Colonoscopy Monitoring: Vital signs and clinical assessment, continuous EKG monitoring, Pulse oximetry, Carbon Dioxide monitoring and blood pressure monitoring were done throughout the procedure. Colon withdrawal time was 25 minutes. Procedure: The patient was placed in the left lateral decubitis position and pre-procedure medications were administered. After a digital rectal examination of the ano-rectum, the video colonoscope was inserted into the rectum and advanced through the colon to the cecum/TI. The colonoscope was slowly withdrawn in a retrograde panoramic fashion and the colon mucosa was carefully examined including a retroflexed view of the rectum. Findings and interventions are described below. Procedure Difficulty: easy Findings: Terminal Ileum-normal Cecum: lateral granular spreading polypoid lesion noted circumferentailly around the appendiceal orifice about 10-12 mm in diameter. This was raised with ERBE JET and then piece meal resected using cold snare and cold bx forceps. epinephrine was also injected to allow better visualization. The edges were then ablated using APC at 40 W. x2 clips used for hemostasis and to close the defect. Ascending Colon: normal Transverse Colon -normal Descending Colon:normal Sigmoid Colon: normal Rectum: Retroflexion with small internal hemorrhoids seen, grade I Anorectum - normal Intervention: ERBE JET, cold snare, cold forceps, epinpehrine inection and clips Colon preparation: [place] Bowel Preparation Scale Right colon; 2 Transverse colon: 2 Left colon; 2 (0 = Unprepared colon segment with mucosa not seen due to solid stool that duke ot be cleared. 1 = Portion of mucosa of the colon segment seen, but other areas of the colon segment not well seen due to staining, residual stool and/or opaque liquid. 2 = Minor amount of residual staining, small fragments of stool and/or opaque liquid, but mucosa of colon segment seen well. 3 = Entire mucosa of colon segment seen well with no residual staining, small fragments of stool or opaque liquid) Impression and Post Procedure Diagnosis: colon polyp x 1 internal hemorrhoids Plan: High fiber diet leaflet Avoid straining at stool, epsom salts and sitz bath, anusol supps or cream Repeat Colonoscopy in 2-3 months or earlier if clinically indicated 5 d of augmentin also if any signs of appendicitis, RLQ pain, fever, needs to come to ED [facility] Above findings were reviewed with the patient and relevant handouts were provided if indicated.
[2024-12-19 12:46] VITALS: BP 111/64; PULSE 96; RESP 16; TEMP 36.8; O2SAT 97
[2024-12-19 13:00] VITALS: BP 110/66; PULSE 96; RESP 16; TEMP 36.8; O2SAT 97
[2024-12-19 13:15] VITALS: BP 124/79; PULSE 81; RESP 16; TEMP 36.6; O2SAT 99
== END 2024-12-19 13:44 | disposition home or self-care (01) ==
PROVIDERS: PCP Nurse Practitioner Family; Visit Provider Internal Medicine Gastroenterology
PROC: 0DJD8ZZ Inspection of Lower Intestinal Tract, Via Natural or Artificial Opening Endoscopic (ICD-10-PCS; CPT 45378; principal; 2024-12-19 13:50)
DX: Z12.11 Encounter for screening for malignant neoplasm of colon (principal); K59.00 Constipation, unspecified; K64.0 First degree hemorrhoids; D12.0 Benign neoplasm of cecum
CPT/HCPCS: 45385; 45382; 45381; 88305; C1889; J0168; J2704; Q9968

== ENCOUNTER → 2024-12-19 09:38 | Outpatient (BNV) | payer OTHER, SELFPAY | PROVIDERS: PCP Nurse Practitioner Family; Visit Provider Internal Medicine Gastroenterology | DX: Z12.11 Encounter for screening for malignant neoplasm of colon (principal); K63.5 Polyp of colon; K64.0 First degree hemorrhoids | CPT/HCPCS: 45385 ==